=== PATIENT | male | born 1955 | race Caucasian/White ===

== ENCOUNTER → 2017-07-05 | Outpatient (CLI) | payer OTHER ==
[~2017-07-05] MED LIST: REGADENOSON 0.4 MG/5 ML DISP.SYRIN. IV
== END | disposition home or self-care (01) ==
LOC: PCVCIMAG 07:44
DX: I65.23 Occlusion and stenosis of bilateral carotid arteries (principal); R09.89 Other specified symptoms and signs involving the circulatory and respiratory systems; I10 Essential (primary) hypertension; E78.5 Hyperlipidemia, unspecified; E83.59 Other disorders of calcium metabolism; R94.31 Abnormal electrocardiogram [ECG] [EKG]; I08.1 Rheumatic disorders of both mitral and tricuspid valves; Z87.891 Personal history of nicotine dependence; Z82.49 Family history of ischemic heart disease and other diseases of the circulatory system
CPT/HCPCS: 78452; 93017; 93306; 93880; A9500; J2785

== ENCOUNTER → 2018-09-15 | Outpatient (CLI) | payer BC, OTHER ==
--- NOTE | 2018-09-15 16:53 | PCVCIMAG ---
EXAM: BILATERAL SUPERFICIAL VENOUS DUPLEX INDICATION: Leg pain and swelling. FINDINGS: Right leg: No thrombus in the common femoral, main femoral, or popliteal veins. These veins are compressible. Right Great Saphenous Vein: At the saphenofemoral junction the diameter is 7.3 mm, in the mid thigh it is 5.5 mm, and in the calf it is 4.4 mm. There is not significant venous insufficiency/reflux throughout. Venous insufficiency/reflux duration is 0 seconds. Right Small Saphenous Vein: At the saphenopopliteal junction the diameter is 4.9 mm, and in the calf it is 4.8 mm. There is not significant venous insufficiency/reflux throughout. Venous insufficiency/reflux duration is 0 seconds. There is not a cranial extension present. Left leg: No thrombus in the common femoral, main femoral, or popliteal veins. These veins are compressible. Left Great Saphenous Vein: At the saphenofemoral junction the diameter is 7.3 mm, in the mid thigh it is 3.5 mm, and in the calf it is 6.2 mm. There is not significant venous insufficiency/reflux throughout. Venous insufficiency/reflux duration is 0 seconds. Left Small Saphenous Vein: At the saphenopopliteal junction the diameter is 4.3 mm, and in the calf it is 4.6 mm. There is not significant venous insufficiency/reflux throughout. Venous insufficiency/reflux duration is 0.3 seconds. There is a cranial extension present. IMPRESSION: Right Great Saphenous Vein: No significant venous insufficiency/reflux is present as noted above. Right Small Saphenous Vein: No significant venous insufficiency/reflux is present as noted above. Left Great Saphenous Vein: No significant venous insufficiency/reflux is present as noted above. Left Small Saphenous Vein: No significant venous insufficiency/reflux is present as noted above. LOC:[id number]
== END | disposition home or self-care (01) ==
LOC: PCVCCLINIC 14:32 → PCVCIMAG 14:35
PROVIDERS: ATTEND Internal Medicine Cardiovascular Disease
DX: M79.89 Other specified soft tissue disorders (principal); M79.604 Pain in right leg; M79.605 Pain in left leg
CPT/HCPCS: 93970

== ENCOUNTER → 2019-05-07 | Outpatient (CLI) | payer BC ==
--- NOTE | 2019-05-08 13:24 | PCVCIMAG ---
APPROVED REPORT Study performed: 05/07/2019 15:04:55 Exam: Stress Echocardiogram Indication: elevated coronary calcium score> 400, LBBB, dyspnea, htn Patient Location: Echo lab Stress Nurse: Rosalind Burris RN Status: routine Ht: 5 ft 10 in HR: 61 bpm BP: 120/84 mmHg Rhythm: LBBB Procedure The patient underwent an Exercise Stress Test using the Louie Protocol. Blood pressure, heart rate, and EKG were monitored. An Echocardiogram was performed by upstream biomanufacturing technician in four stages in quad fashion. At peak stress, four selected images were obtained and placed side by side with resting images for comparison. Stress Test Details Stress Test: Exercise stress testing was performed using a Louie protocol. HR Resting HR: 61 bpmMax Heart Rate (APMHR): 158 bpm Max HR Achieved: 146 bpmTarget HR (85% APMHR): 134 bpm % of APMHR: 92 Recovery HR: 77 bpm HR response to stress: Normal HR response to stress BP Resting BP: 120/84 mmHg Max BP: 180/86 mmHg Recovery BP: 124/80 mmHg BP response to stress: Normal blood pressure response to stress. ECG Resting ECG: Sinus Rhythm, LBBB Stress ECG: Sinus Rhythm ST Change: Normal Arrhythmia: frequent PVCs Recovery ECG: Sinus Rhythm, LBBB Recovery ST Change: Normal Recovery Arrhythmia: frequent PVCs Clinical Reason for Termination: Maximal effort Stress Symptoms: Dyspnea Exercise duration: 10 min 31 sec Highest Stage Achieved: Stage 4: 4.2 mph at 16% grade. Exercise capacity: 13.7 METs Overall Exercise Capacity for Age: Good Scale: Active Angina Score: None Pre-Stress Echo The resting Echocardiogram showed normal left ventricular contractility with an estimated Ejection Fraction of about >55%. The resting echocardiogram demonstrated normal wall motion in all wall segments. Post-Stress Echo The stress Echocardiogram showed normal left ventricular contractility with an estimated Ejection Fraction of about 65%. Compared to rest, there were no stress-induced wall motion abnormalities. Clinical No clinical or ECG evidence for ischemia. Conclusion Clinical Response: Non-ischemic Exercise Capacity: Average Stress ECG Response: Non-ischemic Stress Echo Images: Non-ischemic The left ventricle is normal in size and wall thickness in both the rest and stress images. Mild mitral regurgitation. Mild tricuspid regurgitation with PAP of 41 mmHg. Normal aortic valve without stenosis. Trace pulmonic regurgitation. Other Information Study Quality: Adequate <Conclusion> The left ventricle is normal in size and wall thickness in both the rest and stress images. Mild mitral regurgitation. Mild tricuspid regurgitation with PAP of 41 mmHg. Normal aortic valve without stenosis. Trace pulmonic regurgitation.
== END | disposition home or self-care (01) ==
LOC: PCVCIMAG 15:23
PROVIDERS: ATTEND Internal Medicine Cardiovascular Disease
DX: I08.1 Rheumatic disorders of both mitral and tricuspid valves (principal); R06.00 Dyspnea, unspecified; I44.7 Left bundle-branch block, unspecified; R93.1 Abnormal findings on diagnostic imaging of heart and coronary circulation; I10 Essential (primary) hypertension; E78.00 Pure hypercholesterolemia, unspecified; R07.89 Other chest pain; R06.02 Shortness of breath; Z82.49 Family history of ischemic heart disease and other diseases of the circulatory system; Z87.891 Personal history of nicotine dependence
CPT/HCPCS: 93325; 93351